=== PATIENT | male | born 1980 | race American Indian/Alaskan Native ===

== ENCOUNTER 2017-09-26 21:31 | Emergency (ER) | payer MEDICAID, OTHER, SELFPAY ==
[2017-09-26 21:53] VITALS: BP 126/82; PULSE 67; RESP 18; TEMP 37.3; O2SAT 100; BMI 24.4
[2017-09-26 22:00] VITALS: BP 125/91; PULSE 78; RESP 18; O2SAT 100
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
[2017-09-26 22:27] LABS: Add Manual Diff / Slide Review NO; Basophils Percent Auto 0.4 % (0-2); Eosinophils Percent Auto 1.3 % (2-4); Hematocrit 38.3 % (41-53); Hemoglobin 12.9 g/dL (13.5-17.5); Mean Corpuscular HGB Conc 33.6 % (30-36); Mean Corpuscular Hemoglobin 29.8 PG (26-34); Mean Corpuscular Volume 88.6 fL (80-100); Neutrophils Absolute Auto 7000 /uL (3000-5900); Neutrophils Percent Auto 77.3 % (50-75); Platelet Count 243 X10^3/uL (150-400); Red Blood Cell Count 4.32 X10^6/uL (4.5-5.9); Red Cell Distribution Width 13.6 % (11.6-14.8)
[2017-09-26 22:28] VITALS: BP 124/103; PULSE 74; RESP 16; O2SAT 100
[2017-09-26] MEDS: MORPHINE 2 MG/ML INJ IV (22:32)
[2017-09-26 22:53] LABS: Alanine Aminotransferase 22 IU/L (21-72); Albumin 4.3 g/dL (3.5-5.0); Albumin Globulin Ratio 1.7 (1.0-2.8); Alkaline Phosphatase 68 U/L (38-126); Aspartate Aminotransferase 26 IU/L (17-59); Bilirubin Total 0.3 mg/dL (0.2-1.3); Blood Urea Nitrogen 20 mg/dL (9-20); Calcium 9.2 mg/dL (8.4-10.2); Carbon Dioxide 33 mmol/L (22-32); Chloride 100 mmol/L (98-107); Estimated Glomerular Filt Rate > 60.0 mL/min (>60); Ethanol (ETOH) < 10 mg/dL; Globulin 2.6 g/dL (1.7-4.1); Glucose 103 mg/dL (70-100); HEMOLYSIS 15 (0-50); Lipase 38 U/L (23-300); Potassium 4.2 mmol/L (3.4-5.1); Sodium 139 mmol/L (137-145); Total Protein 6.9 g/dL (6.3-8.2)
[2017-09-26] MEDS: TET,DIPH,PERTUSS(ACELL),VAC/PF 0.5 ML SYRINGE IM (22:54)
[2017-09-26 23:00] VITALS: PULSE 90; RESP 18; O2SAT 100
[2017-09-26 23:04] VITALS: BP 136/77
[2017-09-26 23:35] VITALS: BP 125/69; PULSE 85; RESP 14; O2SAT 99
[2017-09-27 00:57] VITALS: BP 114/72; PULSE 81; RESP 18; O2SAT 17
[2017-09-27 01:11] VITALS: BP 119/67; PULSE 82; RESP 18; TEMP 37.3; O2SAT 98
== END 2017-09-27 01:13 | disposition home or self-care (01) ==
PROVIDERS: Emergency Provider Emergency Medicine
DX: S01.81XA Laceration without foreign body of other part of head, initial encounter (principal); V90.89XA Drowning and submersion due to other accident to unspecified watercraft, initial encounter
CPT/HCPCS: 12013; 36591; 70450; 71260; 72125; 74177; 80053; 80320; 83690; 85025; 90471; 96374; 99284; 99291; 99292; 90715; J2270; Q9967